=== PATIENT | male | born 1930 | race Caucasian/White ===

== ENCOUNTER → 2016-08-18 | Outpatient (CLI) | payer MEDICARE ==
[~2016-08-18] MED LIST: COUM4TAB7 PO; FURO20TA PO; SPIR50TA21 PO; WARF5TAB PO
[2016-08-18 14:21] LABS: PROTHROMBIN TIME - PATIENT 23.3 SEC (9.8-11.6)
== END ==
LOC: CLAB 13:49
PROVIDERS: ATTEND Internal Medicine Interventional Cardiology
DX: Z51.81 Encounter for therapeutic drug level monitoring (principal); Z79.01 Long term (current) use of anticoagulants
CPT/HCPCS: 36415; 85610

== ENCOUNTER → 2017-06-04 | Outpatient (CLI) | payer MEDICARE ==
[2017-06-04 12:44] LABS: HEMATOCRIT 41.8 % (39.0-51.0); MEAN CELL VOLUME 93.9 FL (80.0-100.0); MEAN CORPUSCULAR HEMOGLOBIN 31.3 PG (27.0-34.0); MEAN CORPUSCULAR HGB CONC 33.3 % (32.0-36.0); PLATELET COUNT 149 TH/MM3 (150-450); RED BLOOD COUNT 4.45 MIL/MM3 (4.50-5.90); RED CELL DISTRIBUTION WIDTH 14.7 % (11.6-17.2); REVIEW FLAG FINAL; WHITE BLOOD COUNT 5.6 TH/MM3 (4.0-11.0)
[2017-06-04 12:53] LABS: PROTHROMBIN TIME - PATIENT 22.9 SEC (9.8-11.6)
[2017-06-04 13:12] LABS: BICARBONATE 29.1 MEQ/L (21.0-32.0); POTASSIUM 4.2 MEQ/L (3.5-5.1)
== END ==
LOC: CLAB 12:17
PROVIDERS: ATTEND Internal Medicine Interventional Cardiology
DX: I48.2 Chronic atrial fibrillation (principal); I35.0 Nonrheumatic aortic (valve) stenosis; I42.2 Other hypertrophic cardiomyopathy; Z79.01 Long term (current) use of anticoagulants
CPT/HCPCS: 36415; 80048; 85027; 85610

== ENCOUNTER → 2017-08-06 | Outpatient (CLI) | payer MEDICARE ==
[2017-08-06 09:09] LABS: HEMOGLOBIN 13.7 GM/DL (13.0-17.0); MEAN CELL VOLUME 93.5 FL (80.0-100.0); MEAN CORPUSCULAR HEMOGLOBIN 30.4 PG (27.0-34.0); MEAN CORPUSCULAR HGB CONC 32.6 % (32.0-36.0); PLATELET COUNT 119 TH/MM3 (150-450); RED BLOOD COUNT 4.49 MIL/MM3 (4.50-5.90); WHITE BLOOD COUNT 4.1 TH/MM3 (4.0-11.0)
[2017-08-06 09:14] LABS: INTERNATIONAL NORMALIZED RATIO 1.8 RATIO; PROTHROMBIN TIME - PATIENT 18.2 SEC (9.8-11.6)
[2017-08-06 09:32] LABS: BICARBONATE 27.2 MEQ/L (21.0-32.0); CALCIUM 8.6 MG/DL (8.5-10.1); CREATININE 0.87 MG/DL (0.60-1.30)
== END ==
LOC: CLAB 08:40
PROVIDERS: ATTEND Internal Medicine Interventional Cardiology
DX: I25.10 Atherosclerotic heart disease of native coronary artery without angina pectoris (principal); I48.2 Chronic atrial fibrillation; I50.42 Chronic combined systolic (congestive) and diastolic (congestive) heart failure; Z79.01 Long term (current) use of anticoagulants
CPT/HCPCS: 36415; 80048; 85027; 85610

== ENCOUNTER → 2017-10-30 | Outpatient (CLI) | payer MEDICARE ==
[2017-10-30 09:55] LABS: PROTHROMBIN TIME - PATIENT 40.2 SEC (9.8-11.6)
[2017-10-30 10:25] LABS: BICARBONATE 29.7 MEQ/L (21.0-32.0); CALCIUM 8.9 MG/DL (8.5-10.1); CREATININE 0.84 MG/DL (0.60-1.30)
== END ==
LOC: CLAB 09:14
PROVIDERS: ATTEND Internal Medicine Interventional Cardiology
DX: R06.02 Shortness of breath (principal); I48.2 Chronic atrial fibrillation; Z79.01 Long term (current) use of anticoagulants; Z79.899 Other long term (current) drug therapy
CPT/HCPCS: 36415; 80048; 85610

== ENCOUNTER → 2017-11-10 | Outpatient (CLI) | payer MEDICARE ==
[2017-11-10 08:36] LABS: HEMATOCRIT 39.6 % (39.0-51.0); HEMOGLOBIN 13.1 GM/DL (13.0-17.0); MEAN CELL VOLUME 92.3 FL (80.0-100.0); MEAN CORPUSCULAR HEMOGLOBIN 30.6 PG (27.0-34.0); MEAN CORPUSCULAR HGB CONC 33.2 % (32.0-36.0); MEAN PLATELET VOLUME 7.2 FL (7.0-11.0); PLATELET COUNT 163 TH/MM3 (150-450); RED BLOOD COUNT 4.29 MIL/MM3 (4.50-5.90); RED CELL DISTRIBUTION WIDTH 15.3 % (11.6-17.2); WHITE BLOOD COUNT 4.6 TH/MM3 (4.0-11.0)
[2017-11-10 08:46] LABS: INTERNATIONAL NORMALIZED RATIO 1.3 RATIO; PROTHROMBIN TIME - PATIENT 13.4 SEC (9.8-11.6)
[2017-11-10 09:05] LABS: ALBUMIN 3.4 GM/DL (3.4-5.0); AST (GOT) 24 U/L (15-37); BLOOD UREA NITROGEN 31 MG/DL (7-18); CALCIUM 8.7 MG/DL (8.5-10.1); CHLORIDE 103 MEQ/L (98-107); CREATININE 0.91 MG/DL (0.60-1.30); GLOMERULAR FILTRATION RATE 79 ML/MIN (>89); GLUCOSE,FASTING 85 MG/DL (74-99); SODIUM (NA) 140 MEQ/L (136-145)
[2017-11-10 09:10] LABS: ALKALINE PHOSPHATASE 103 U/L (45-117); ALT (GPT) 16 U/L (12-78); TOTAL BILIRUBIN ADULT 1.6 MG/DL (0.2-1.0); TOTAL PROTEIN 6.3 GM/DL (6.4-8.2)
== END ==
LOC: CLAB 08:10
PROVIDERS: ATTEND Internal Medicine Interventional Cardiology
DX: Z79.810 Long term (current) use of selective estrogen receptor modulators (SERMs) (principal); Z79.899 Other long term (current) drug therapy
CPT/HCPCS: 36415; 80053; 85027; 85610

== ENCOUNTER 2017-11-11 09:32 | Day surgery (SDC) | payer MEDICARE ==
[2017-11-11 10:06] VITALS: BP 124/83; PULSE 88; RESP 16; TEMP 98.4; O2SAT 98
[2017-11-11 12:15] VITALS: BP 113/67; PULSE 75; RESP 20; TEMP 98.2; O2SAT 99
[2017-11-11 12:30] VITALS: BP 100/57; PULSE 72; RESP 18; O2SAT 99
[2017-11-11 13:41] LABS: PERITONEAL HISTIOCYTES 1 %; PERITONEAL LYMPHS 38 %; PERITONEAL MESOTHELIAL 3 %; PERITONEAL MONOS 10 %; PERITONEAL POLYS(SEGS) 48 %; PERITONEAL RBC 4460 /MM3 (0-0)
--- NOTE | 2017-11-11 14:24 | RADRPT ---
EXAM DATE/TIME: 11/11/2017 11:37 [facility] COMPARISON: No previous studies available for comparison. EXTERNAL COMPARISON: [facility], US ABDOMEN COMPLETE, Oct 29 2017. INDICATIONS : Ascites. MEDICAL HISTORY : Arthritis. Congestive heart failure. Ascites. SURGICAL HISTORY : CABG Aortic valve replacement. Cardiac cath. Blood transfusions. ENCOUNTER: Initial ACUITY: 2 weeks PAIN SCORE: 0/10 LOCATION: Right lower quadrant FLUID: Total volume of 3800 cc of fluid was removed. Fluid was sent to lab for ordered studies. Post procedure scanning reveals no hematoma or other complication. TECHNIQUE: 1. Ultrasound guidance for abdominal paracentesis. 2. Paracentesis. The risks, benefits, and alternatives to ultrasound guided paracentesis were explained to the patient in detail including the risk of bleeding and infection. Written and verbal informed consent was obt ained. With the patient on the ultrasound table, ultrasound imaging was used to select the most appropriate approach for paracentesis. Overlying skin was prepped and draped in the usual sterile fashion and wi th a local anesthetic, a dermatotomy was made with an 11 blade scalpel. A 6 Swedish Jnd-S-lmaobtle ca theter was introduced into the peritoneal cavity and fluid was collected. The patient tolerated the procedure well and left the ultrasound suite in stable condition. CONCLUSION: Uncomplicated ultrasound guided paracentesis. Hu Marc MD on November 11, 2017 at 14:04 Board Certified Radiologist. This report was verified electronically.
[2017-11-12 15:35] LABS: AMYLASE BODY FLUID 19 U/L; AMYLASE BODY FLUID TYPE PERITONEAL
== END 2017-11-11 13:00 | disposition home or self-care (01) ==
LOC: HRAD 09:32 → HRIP 09:35 → HRAD 13:00
PROVIDERS: ATTEND Internal Medicine Interventional Cardiology
DX: I50.9 Heart failure, unspecified (principal); Z95.2 Presence of prosthetic heart valve; Z95.1 Presence of aortocoronary bypass graft
CPT/HCPCS: 49083; 82042; 82150; 82945; 83615; 87015; 87070; 87116; 87205; 87206; 88112; 88305; 89051; C1729

== ENCOUNTER → 2017-11-30 | Outpatient (CLI) | payer MEDICARE ==
[2017-11-30 09:25] LABS: INTERNATIONAL NORMALIZED RATIO 2.3 RATIO; PROTHROMBIN TIME - PATIENT 23.4 SEC (9.8-11.6)
[2017-11-30 09:52] LABS: BICARBONATE 30.8 MEQ/L (21.0-32.0); CALCIUM 8.8 MG/DL (8.5-10.1); CREATININE 0.91 MG/DL (0.60-1.30)
== END ==
LOC: CLAB 08:54
PROVIDERS: ATTEND Internal Medicine Interventional Cardiology
DX: I50.32 Chronic diastolic (congestive) heart failure (principal); I42.2 Other hypertrophic cardiomyopathy; I48.2 Chronic atrial fibrillation; Z79.899 Other long term (current) drug therapy
CPT/HCPCS: 36415; 80048; 85610

== ENCOUNTER 2017-12-07 10:13 | Emergency (ER) | payer MEDICARE ==
[~2017-12-07] VITALS: Ht 167.6 cm; Wt 84.0 kg
[2017-12-07 10:43] VITALS: BP 147/64; PULSE 79; RESP 16; TEMP 98.1
[2017-12-07] MEDS ORDERED: WARF-58 PO (11:22)
[2017-12-07] MEDS ORDERED: LIDOCAINE HCL 1% PF 30 ML VIAL INFIL ONE (11:45)
[2017-12-07 11:52] LABS: AUTOMATED NEUTROPHIL # 4.1 TH/MM3 (1.8-7.7); BASOPHIL % 0.3 % (0.0-2.0); EOSINOPHIL # 0.2 TH/MM3 (0-0.4); EOSINOPHIL % 4.7 % (0.0-4.0); HEMATOCRIT 41.9 % (39.0-51.0); HEMOGLOBIN 13.9 GM/DL (13.0-17.0); LYMPH % 7.2 % (9.0-44.0); LYMPHOCYTE # 0.4 TH/MM3 (1.0-4.8); MEAN CELL VOLUME 92.5 FL (80.0-100.0); MEAN CORPUSCULAR HEMOGLOBIN 30.6 PG (27.0-34.0); MEAN CORPUSCULAR HGB CONC 33.1 % (32.0-36.0); MEAN PLATELET VOLUME 7.5 FL (7.0-11.0); MONO % 6.3 % (0.0-8.0); MONOCYTE # 0.3 TH/MM3 (0-0.9); NEUT % 81.5 % (16.0-70.0); PLATELET COUNT 158 TH/MM3 (150-450); RED BLOOD COUNT 4.53 MIL/MM3 (4.50-5.90); RED CELL DISTRIBUTION WIDTH 15.9 % (11.6-17.2)
[2017-12-07 11:59] LABS: INTERNATIONAL NORMALIZED RATIO 2.3 RATIO; PROTHROMBIN TIME - PATIENT 23.6 SEC (9.8-11.6)
--- NOTE | 2017-12-07 12:09 | PD ---
HPI Chief Complaint: Syncope/Near-Syncope Time Seen by Provider: 11:20 Travel History International Travel<30 days: No Contact w/Intl Traveler<30days: No Traveled to known affect area: No History of Present Illness HPI 87-year-old male that presents to the ED for evaluation of presyncopal episode with fall and head injury. Patient has a significant history of amyloidosis with liver, kidney and cardiac involvement. Patient has a history of ascites and gets paracentesis done last time done 2 weeks ago. Per patient he was trying to get to his chair when he started feeling dizzy and he obviously did not make it. He did hit his head. He denies losing consciousness however. He does have abrasions and lacerations to his left forehead as well as to his left elbow and left knee. Patient states having pain to these areas. Ambulance showed up at his home and they recommended that she comes here to get sutures. Patient does take Coumadin. Patient states that he was recently put on a new medication and he thinks that they might be related to the syncopal episodes. Patient denies any back or neck pain. Patient denies any hip pain. Patient came here by private vehicle. Brought here by family. Patient denies any abdominal pain. No chest pain. No chest pain or palpitations before the symptoms. He denies any numbness, tingling, weakness. PFSH Past Medical History Hx Anticoagulant Therapy: Yes Heart Rhythm Problems: No Cancer: No Cardiac Catheterization: Yes Cardiovascular Problems: Yes High Cholesterol: No Chest Pain: No Congestive Heart Failure: Yes Diminished Hearing: No Genitourinary: No Immune Disorder: No Musculoskeletal: Yes (athritis) Neurologic: No Psychiatric: No Reproductive: No Respiratory: No Tetanus Vaccination: > 5 Years Influenza Vaccination: Yes Past Surgical History Coronary Artery Bypass Graft: Yes (CABG X 5) Other Surgery: Yes Social History Alcohol Use: Yes (OCCASIONALLY) Tobacco Use: No Substance Use: No Allergies-Medications (Allergen,Severity, Reaction): Coded Allergies: apixaban (Verified Allergy, Unknown, hives, 12/07/17) naproxen (Verified Allergy, Unknown, hives, 12/07/17) rivaroxaban (Verified Allergy, Unknown, 12/07/17) Reported Meds & Prescriptions Reported Meds & Active Scripts Active Mupirocin Topical (Mupirocin) 2 % Oint 1 Applic TOPICAL BID Reported Warfarin 3 Mg Tab 3 Mg PO DAILY Furosemide 20 Mg Tab 20 Mg PO DAILY Review of Systems Except as stated in HPI: all other systems reviewed are Neg Physical Exam Narrative GENERAL: SKIN: Warm and dry. Patient has a skin tear to the left elbow which appears to be about 4-5 cm in diameter. Some bleeding noted. Patient has a superficial abrasion to the left knee but able to move it fully. HEAD: Atraumatic. Normocephalic. Patient has a superficial 2 cm laceration to the left forehead. EYES: Pupils equal and round 4 mm reactive to light and accommodation.. No scleral icterus. No injection or drainage. ENT: No nasal bleeding or discharge. Mucous membranes pink and moist. Tongue is midline. No uvula deviation. NECK: Trachea midline. No JVD. CARDIOVASCULAR: Regular rate and rhythm. RESPIRATORY: No accessory muscle use. Clear to auscultation. Breath sounds equal bilaterally. GASTROINTESTINAL: Abdomen soft, non-tender, distended with ascitic fluid. Hepatic and splenic margins not palpable. MUSCULOSKELETAL: Extremities without clubbing, cyanosis, or edema. No obvious deformities. Full range of motion of the upper and lower extremities bilaterally. 2+ pulses bilaterally. The lumbar, thoracic, cervical spine tenderness to palpation. NEUROLOGICAL: Awake and alert. No obvious cranial nerve deficits. Motor grossly within normal limits. Five out of 5 muscle strength in the arms and legs. Normal speech. PSYCHIATRIC: Appropriate mood and affect; insight and judgment normal. Data Data Last Documented VS Vital Signs Date Time Temp Pulse Resp B/P (MAP) Pulse Ox O2 Delivery O2 Flow Rate FiO2 12/07/17 12:24 71 126/69 (88) 12/07/17 12:24 99 Room Air 12/07/17 11:24 15 12/07/17 10:[address] Brain W/O Iv Contrast(Rout) (12/07/17 ) Electrocardiogram (12/07/17 11:20) Complete Blood Count With Diff (12/07/17 11:20) Comprehensive Metabolic Panel (12/07/17 11:20) Ckmb (Isoenzyme) Profile (12/07/17 11:20) Troponin I (12/07/17 11:20) B-Type Natriuretic Peptide (12/07/17 11:20) Prothrombin Time / Inr (Pt) (12/07/17 11:20) Act Partial Throm Time (Ptt) (12/07/17 11:20) Urinalysis - C+S If Indicated (12/07/17 11:20) Magnesium (Mg) (12/07/17 11:20) Thyroid Stimulating Hormone (12/07/17 11:20) Chest, Single Ap (12/07/17 11:20) Iv Access Insert/Monitor (12/07/17 11:20) Ecg Monitoring (12/07/17 11:20) Oximetry (12/07/17 11:20) Orthostatic Vital Signs (12/07/17 11:20) Lidocaine Pf 1% Inj (Xylocaine-Mpf 1% In (12/07/17 11:45) Knee, Complete (4vws) (12/07/17 ) Elbow, Complete (4 Vws) (12/07/17 ) Wound Care (12/07/17 11:33) Ed Discharge Order (12/07/17 13:28) Labs Laboratory Tests Test 12/07/17 11:40 12/07/17 12:35 White Blood Count 5.0 TH/MM3 Red Blood Count 4.53 MIL/MM3 Hemoglobin 13.9 GM/DL Hematocrit 41.9 % Mean Corpuscular Volume 92.5 FL Mean Corpuscular Hemoglobin 30.6 PG Mean Corpuscular Hemoglobin Concent 33.1 % Red Cell Distribution Width 15.9 % Platelet Count 158 TH/MM3 Mean Platelet Volume 7.5 FL Neutrophils (%) (Auto) 81.5 % Lymphocytes (%) (Auto) 7.2 % Monocytes (%) (Auto) 6.3 % Eosinophils (%) (Auto) 4.7 % Basophils (%) (Auto) 0.3 % Neutrophils # (Auto) 4.1 TH/MM3 Lymphocytes # (Auto) 0.4 TH/MM3 Monocytes # (Auto) 0.3 TH/MM3 Eosinophils # (Auto) 0.2 TH/MM3 Basophils # (Auto) 0.0 TH/MM3 CBC Comment DIFF FINAL Differential Comment Prothrombin Time 23.6 SEC Prothromb Time International Ratio 2.3 RATIO Activated Partial Thromboplast Time 33.8 SEC Blood Urea Nitrogen 33 MG/DL Creatinine 1.10 MG/DL Random Glucose 90 MG/DL Total Protein 6.7 GM/DL Albumin 3.6 GM/DL Calcium Level 9.3 MG/DL Magnesium Level 2.4 MG/DL Alkaline Phosphatase 116 U/L Aspartate Amino Transf (AST/SGOT) 33 U/L Alanine Aminotransferase (ALT/SGPT) 21 U/L Total Bilirubin 1.2 MG/DL Sodium Level 140 MEQ/L Potassium Level 4.4 MEQ/L Chloride Level 103 MEQ/L Carbon Dioxide Level 29.4 MEQ/L Anion Gap 8 MEQ/L Estimat Glomerular Filtration Rate 63 ML/MIN Total Creatine Kinase 83 U/L Troponin I 0.05 NG/ML B-Type Natriuretic Peptide 383 PG/ML Thyroid Stimulating Hormone 3rd Gen 3.450 uIU/ML Urine Color YELLOW Urine Turbidity CLEAR Urine pH 5.5 Urine Specific [place] 1.022 Urine Protein TRACE mg/dL Urine Glucose (UA) NEG mg/dL Urine Ketones NEG mg/dL Urine Occult Blood NEG Urine Nitrite NEG Urine Bilirubin NEG Urine Urobilinogen LESS THAN 2.0 MG/DL Urine Leukocyte Esterase TRACE Urine RBC 5 /hpf Urine WBC 1 /hpf Urine Squamous Epithelial Cells <1 /hpf Urine Mucus MANY /lpf Microscopic Urinalysis Comment CULT NOT INDICATED MDM Medical Decision Making Medical Screen Exam Complete: Yes Emergency Medical Condition: Yes Medical Record Reviewed: Yes Interpretation(s) CBC & BMP Diagram 12/07/17 11:40 Total Protein 6.7, Albumin 3.6, Calcium Level 9.3, Magnesium Level 2.4, Alkaline Phosphatase 116, Aspartate Amino Transf (AST/SGOT) 33, Alanine Aminotransferase (ALT/SGPT) 21, Total Bilirubin 1.2 H Last Impressions Chest X-Ray 12/07/17 1120 Signed Impressions: Service Date/Time: Thursday, December 07, 2017 12:07 - CONCLUSION: 1. Bilateral pleural effusions with hazy opacity at both lung bases and cardiomegaly. The findings are of concern for congestive heart failure. 2. Status post median sternotomy with artificial heart valve in place. Rocco Romero MD Knee X-Ray 12/07/17 0000 Signed Impressions: Service Date/Time: Thursday, December 07, 2017 11:52 - CONCLUSION: Negative trauma study with minimal degenerative change. Rocco Romero MD Head CT 12/07/17 0000 Signed Impressions: Service Date/Time: Thursday, December 07, 2017 12:09 - CONCLUSION: Negative noncontrast CT. Rocco Romero MD Elbow X-Ray 12/07/17 0000 Signed Impressions: Service Date/Time: Thursday, December 07, 2017 11:59 - CONCLUSION: Negative trauma study with mild degenerative change. Rocco Romero MD EKG show atrial fibrillation with no sign of acute ischemia read by me and attending. Differential Diagnosis Head injury versus syncope versus cardiac syncope versus fracture versus strain versus sprain Narrative Course 87-year-old male that presents to the ED for evaluation of syncope and fall. Patient was properly examined and was found to have signs and symptoms concerning for syncope and fall. Labs and imaging order. I recommend suturing. Patient gives verbal consent, please refer to my procedure note. Labs and imaging showed no sign of acute disease. Chronic changes. Patient does have fluid in his lungs which per patient is chronic for him. He is also DNR. He was given the option by myself in my attending to get admitted for further evaluation but patient at this time declines. Per patient he wants to go home. This was discussed at length with the patient about needing further evaluation but patient states that she rather go home. he understands risks. He has someone who can look at him at home. Patient was given a prescription for mupirocin cream. My attending spoke with the patient and agrees with plan. Told to follow-up with PCP. See ED if worsening symptoms. Get sutures removed in 1 week. Procedures Procedure Narrative LACERATION LOCATION: left forehead LENGTH: 2 cm NUMBER OF STITCHES/JAYY: 6 sutures REPAIR: The area of the laceration was prepped with Betadine and sterilely draped. The laceration was infiltrated with 1% Xylocaine. The wound was copiously irrigated and explored without evidence of foreign body, tendon injury or neurovascular injury. The wound was closed using 4-0 Prolene. This was a 1 layer repair. A sterile dressing was applied. The patient was advised to keep the dressing clean and dry. Patient tolerated the procedure well. Diagnosis Primary Impression: Head injury Qualified Codes: S09.90XA - Unspecified injury of head, initial encounter Additional Impressions: Laceration of head Qualified Codes: S01.01XA - Laceration without foreign body of scalp, initial encounter Skin tear of left elbow without complication Qualified Codes: S51.012A - Laceration without foreign body of left elbow, initial encounter Knee abrasion Qualified Codes: S80.212A - Abrasion, left knee, initial encounter Dizziness Patient Instructions: General Instructions Additional Instructions: Wound care daily with soap and water. You can apply bandaid if needed. Neosporyn or OTC antibiotic ointment to area as needed twice a day for at least 2 weeks to help with scarring and prevent infection. Meoderma OTC for scarring if needed. Avoid sun exposure for 2 months as the sun could make scar darker and more noticeable. Get sutures removed in 7 days. See ED if worst. Tylenol for pain as needed Med/Other Pt SpecificInfo: Prescription(s) given Scripts Mupirocin Topical (Mupirocin Topical) 2 % Oint 1 APPLIC TOPICAL BID for Mgmt Bacterial Infection, #1 TUBE 0 Refills Prov: Jairo Hernandez MD 12/07/17 Disposition: 01 DISCHARGE HOME Condition: Gil Stark Dec 07, 2017 12:09
[2017-12-07 12:12] LABS: ALT (GPT) 21 U/L (12-78)
[2017-12-07 12:16] LABS: ALBUMIN 3.6 GM/DL (3.4-5.0); AST (GOT) 33 U/L (15-37); BICARBONATE 29.4 MEQ/L (21.0-32.0); BLOOD UREA NITROGEN 33 MG/DL (7-18); CALCIUM 9.3 MG/DL (8.5-10.1); CHLORIDE 103 MEQ/L (98-107); GLOMERULAR FILTRATION RATE 63 ML/MIN (>89); GLUCOSE,RANDOM 90 MG/DL (74-106); MAGNESIUM 2.4 MG/DL (1.5-2.5); SODIUM (NA) 140 MEQ/L (136-145)
--- NOTE | 2017-12-07 12:20 | RADRPT ---
EXAM DATE/TIME: 12/07/2017 12:09 [facility] COMPARISON: No previous studies available for comparison. INDICATIONS : Fall, left sided head laceration, right sided numbness RADIATION DOSE: 56.35 CTDIvol (mGy) MEDICAL HISTORY : Cardiovascular disease. SURGICAL HISTORY : None. ENCOUNTER: Initial ACUITY: 1 day PAIN SCALE: 2/10 LOCATION: cranial TECHNIQUE: Multiple contiguous axial images were obtained of the head. Using automated exposure control and adj ustment of the mA and/or kV according to patient size, radiation dose was kept as low as reasonably a chievable to obtain optimal diagnostic quality images. DICOM format image data is available electro nically for review and comparison. FINDINGS: CEREBRUM: The ventricles are normal for age. No evidence of midline shift, mass lesion, hemorrhage or acute in farction. No extra-axial fluid collections are seen. POSTERIOR FOSSA: The cerebellum and brainstem are intact. The 4th ventricle is midline. The cerebellopontine angle i s unremarkable. EXTRACRANIAL: The visualized portion of the orbits is intact. SKULL: The calvaria is intact. No evidence of skull fracture. CONCLUSION: Negative noncontrast CT. Rocco Romero MD on December 07, 2017 at 12:18 Board Certified Radiologist. This report was verified electronically.
[2017-12-07 12:21] LABS: ALKALINE PHOSPHATASE 116 U/L (45-117); TOTAL BILIRUBIN ADULT 1.2 MG/DL (0.2-1.0); TOTAL PROTEIN 6.7 GM/DL (6.4-8.2); TROPONIN I 0.05 NG/ML (0.02-0.05)
--- NOTE | 2017-12-07 12:21 | RADRPT ---
EXAM DATE/TIME: 12/07/2017 11:52 [facility] COMPARISON: No previous studies available for comparison. INDICATIONS : Fell this morning pain with laceration patella MEDICAL HISTORY : None. SURGICAL HISTORY : None. ENCOUNTER: Initial ACUITY: 1 day PAIN SCORE: 8/10 LOCATION: Left knee. FINDINGS: Four view examination of the left knee demonstrates no evidence of fracture or dislocation. Bony min eralization is normal. Mild degenerative changes noted in the patellofemoral joint with slight spurri ng. The articular surfaces are intact. The suprapatellar soft tissues have a normal configuration. CONCLUSION: Negative trauma study with minimal degenerative change. Rocco Romero MD on December 07, 2017 at 12:19 Board Certified Radiologist. This report was verified electronically.
--- NOTE | 2017-12-07 12:22 | RADRPT ---
EXAM DATE/TIME: 12/07/2017 11:59 [facility] COMPARISON: No previous studies available for comparison. INDICATIONS : Fell this morning pain with laceration left elbow. MEDICAL HISTORY : None. SURGICAL HISTORY : None. ENCOUNTER: Initial ACUITY: 1 day PAIN SCORE: 9/10 LOCATION: Left elbow FINDINGS: Multiple view examination of the left elbow demonstrates no soft tissue swelling, joint effusion, or fracture. The osseous structures are in normal alignment. Mild degenerative changes are noted in the ulnar trochlear joint with slight spurring. Bony mineralization is normal. CONCLUSION: Negative trauma study with mild degenerative change. Rocco Romero MD on December 07, 2017 at 12:20 Board Certified Radiologist. This report was verified electronically.
[2017-12-07 12:23] VITALS: BP 123/65
--- NOTE | 2017-12-07 12:23 | RADRPT ---
EXAM DATE/TIME: 12/07/2017 12:07 [facility] COMPARISON: CHEST SINGLE AP, October 18, 2015, 18:35. INDICATIONS : Fall this morning pain left elbow and knee. MEDICAL HISTORY : Myocardial infarction. SURGICAL HISTORY : CABG. ENCOUNTER: Initial ACUITY: 1 day PAIN SCORE: 4/10 LOCATION: Bilateral chest FINDINGS: A single AP supine view of the chest was obtained and demonstrates the patient is status post median sternotomy. An artificial heart valve is again noted in place and mediastinal clips. Heart size remai ns prominent. Bilateral pleural effusions are present with blunting of the costophrenic angles. There is hazy opacity at both lung bases. Bony thorax is intact with degenerative changes left glenohumera l joint. CONCLUSION: 1. Bilateral pleural effusions with hazy opacity at both lung bases and cardiomegaly. The findings ar e of concern for congestive heart failure. 2. Status post median sternotomy with artificial heart valve in place. Rocco Romero MD on December 07, 2017 at 12:20 Board Certified Radiologist. This report was verified electronically.
[2017-12-07 12:24] VITALS: BP 126/69; O2SAT 99
[2017-12-07 13:00] LABS: BILIRUBIN, URINE NEG (NEG); BLOOD, URINE NEG (NEG); GLUCOSE,URINE NEG (NEG); KETONE, URINE NEG (NEG); MUCUS URINE MANY /lpf (OCC); NITRITE,URINE NEG (NEG); PH, URINE 5.5 (5.0-8.5); SQUAMOUS EPITHELIAL CELL URINE <1 /hpf (0-5); URINE COLOR YELLOW (YELLW/STRAW); URINE LEUKOCYTE ESTERASE TRACE (NEG)
--- NOTE | 2017-12-07 13:21 | PD ---
Data Data Last Documented VS Vital Signs Date Time Temp Pulse Resp B/P (MAP) Pulse Ox O2 Delivery O2 Flow Rate FiO2 12/07/17 13:37 12/07/17 12:24 71 12/07/17 12:24 99 Room Air 12/07/17 11:24 15 12/07/17 10:[address] Brain W/O Iv Contrast(Rout) (12/07/17 ) Electrocardiogram (12/07/17 11:20) Complete Blood Count With Diff (12/07/17 11:20) Comprehensive Metabolic Panel (12/07/17 11:20) Ckmb (Isoenzyme) Profile (12/07/17 11:20) Troponin I (12/07/17 11:20) B-Type Natriuretic Peptide (12/07/17 11:20) Prothrombin Time / Inr (Pt) (12/07/17 11:20) Act Partial Throm Time (Ptt) (12/07/17 11:20) Urinalysis - C+S If Indicated (12/07/17 11:20) Magnesium (Mg) (12/07/17 11:20) Thyroid Stimulating Hormone (12/07/17 11:20) Chest, Single Ap (12/07/17 11:20) Iv Access Insert/Monitor (12/07/17 11:20) Ecg Monitoring (12/07/17 11:20) Oximetry (12/07/17 11:20) Orthostatic Vital Signs (12/07/17 11:20) Lidocaine Pf 1% Inj (Xylocaine-Mpf 1% In (12/07/17 11:45) Knee, Complete (4vws) (12/07/17 ) Elbow, Complete (4 Vws) (12/07/17 ) Wound Care (12/07/17 11:33) Ed Discharge Order (12/07/17 13:28) Labs Laboratory Tests Test 12/07/17 11:40 12/07/17 12:35 White Blood Count 5.0 TH/MM3 Red Blood Count 4.53 MIL/MM3 Hemoglobin 13.9 GM/DL Hematocrit 41.9 % Mean Corpuscular Volume 92.5 FL Mean Corpuscular Hemoglobin 30.6 PG Mean Corpuscular Hemoglobin Concent 33.1 % Red Cell Distribution Width 15.9 % Platelet Count 158 TH/MM3 Mean Platelet Volume 7.5 FL Neutrophils (%) (Auto) 81.5 % Lymphocytes (%) (Auto) 7.2 % Monocytes (%) (Auto) 6.3 % Eosinophils (%) (Auto) 4.7 % Basophils (%) (Auto) 0.3 % Neutrophils # (Auto) 4.1 TH/MM3 Lymphocytes # (Auto) 0.4 TH/MM3 Monocytes # (Auto) 0.3 TH/MM3 Eosinophils # (Auto) 0.2 TH/MM3 Basophils # (Auto) 0.0 TH/MM3 CBC Comment DIFF FINAL Differential Comment Prothrombin Time 23.6 SEC Prothromb Time International Ratio 2.3 RATIO Activated Partial Thromboplast Time 33.8 SEC Blood Urea Nitrogen 33 MG/DL Creatinine 1.10 MG/DL Random Glucose 90 MG/DL Total Protein 6.7 GM/DL Albumin 3.6 GM/DL Calcium Level 9.3 MG/DL Magnesium Level 2.4 MG/DL Alkaline Phosphatase 116 U/L Aspartate Amino Transf (AST/SGOT) 33 U/L Alanine Aminotransferase (ALT/SGPT) 21 U/L Total Bilirubin 1.2 MG/DL Sodium Level 140 MEQ/L Potassium Level 4.4 MEQ/L Chloride Level 103 MEQ/L Carbon Dioxide Level 29.4 MEQ/L Anion Gap 8 MEQ/L Estimat Glomerular Filtration Rate 63 ML/MIN Total Creatine Kinase 83 U/L Troponin I 0.05 NG/ML B-Type Natriuretic Peptide 383 PG/ML Thyroid Stimulating Hormone 3rd Gen 3.450 uIU/ML Urine Color YELLOW Urine Turbidity CLEAR Urine pH 5.5 Urine Specific [place] 1.022 Urine Protein TRACE mg/dL Urine Glucose (UA) NEG mg/dL Urine Ketones NEG mg/dL Urine Occult Blood NEG Urine Nitrite NEG Urine Bilirubin NEG Urine Urobilinogen LESS THAN 2.0 MG/DL Urine Leukocyte Esterase TRACE Urine RBC 5 /hpf Urine WBC 1 /hpf Urine Squamous Epithelial Cells <1 /hpf Urine Mucus MANY /lpf Microscopic Urinalysis Comment CULT NOT INDICATED MDM Medical Record Reviewed: Yes Supervised Visit with PANCHO: Yes Narrative Course I, Dr. Hernandez, have reviewed the advance practice practitioner's documentation and am in agreement, met with the patient face to face, made the diagnosis, and the medical decision making was done by me. *My assessment and Findings: The patient had right-sided numbness followed by a near syncope event with fall and forehead laceration. Fortunately the patient refuses to stay here. We discussed indications for admission including possible TIA with high risk for CVA in the next 24 hours. Additional note was made of EKG abnormalities. Patient refused admission. Patient opportunity discussed alternatives and risks in so doing. Patient agrees to follow-up with primary care provider expeditiously. I spoke with Dr. Garcia (pt's PMD) who will try to get the patient in the office however does note a long history of noncompliance with this patient. Patient is hemodynamically stable and is of sound mind for independent decision making. Scripts Mupirocin Topical (Mupirocin Topical) 2 % Oint 1 APPLIC TOPICAL BID for Mgmt Bacterial Infection, #1 TUBE 0 Refills Prov: Jairo Hernandez MD 12/07/17 Jairo Hernandez MD Dec 07, 2017 13:21
[2017-12-07] MEDS ORDERED: MUPI2OIN TOPICAL (13:29)
--- NOTE | 2017-12-07 17:47 | EKG ---
Date Performed: 12/07/2017 Time Performed: 11:39:45 PTAGE: 87 years EKG: ATRIAL FIBRILLATION RIGHT BUNDLE BRANCH BLOCK POSSIBLE ANTERIOR MYOCARDIAL INFARCTION INFER IOR MYOCARDIAL INFARCTION MODERATE T-WAVE ABNORMALITY ABNORMAL ECG PREVIOUS TRACING : 10/18/2015 19.03 DOCTOR: Colton Ortiz Interpretating Date/Time 12/07/2017 17:45:36
== END 2017-12-07 14:09 | disposition home or self-care (01) ==
LOC: NEPE 10:13
DX: S01.81XA Laceration without foreign body of other part of head, initial encounter (principal); S01.01XA Laceration without foreign body of scalp, initial encounter; S51.012A Laceration without foreign body of left elbow, initial encounter; S80.212A Abrasion, left knee, initial encounter; R42 Dizziness and giddiness; I50.9 Heart failure, unspecified; W19.XXXA Unspecified fall, initial encounter; Z79.01 Long term (current) use of anticoagulants
CPT/HCPCS: 12011; 70450; 71045; 73080; 73564; 80053; 81001; 82550; 83735; 83880; 84443; 84484; 85025; 85610; 85730; 93005

== ENCOUNTER 2017-12-15 09:25 | Emergency (ER) | payer MEDICARE ==
[~2017-12-15] VITALS: Ht 165.1 cm; Wt 57.0 kg
[~2017-12-15 09:25] MED LIST changes: -COUM4TAB7 PO; +MUPI2OIN TOPICAL; -SPIR50TA21 PO; +WARF-58 PO; -WARF5TAB PO
[2017-12-15 09:28] VITALS: BP 125/65; PULSE 78; RESP 18; TEMP 97; O2SAT 99
--- NOTE | 2017-12-15 09:53 | PD ---
HPI Chief Complaint: Wound/Suture/Staple Re-Check Time Seen by Provider: 09:45 Travel History International Travel<30 days: No Contact w/Intl Traveler<30days: No Traveled to known affect area: No History of Present Illness HPI 87-year-old male presents to the emergency room for suture removal. Patient had 6 sutures placed on his head 8 days ago after having syncopal episode. States he has been keeping the area clean and dry and washing it daily. He has not been applying any ointment to the area. Denies any pain, redness, or drainage. Denies any headaches. PFSH Past Medical History Hx Anticoagulant Therapy: Yes Heart Rhythm Problems: No Cancer: No Cardiac Catheterization: Yes Cardiovascular Problems: Yes High Cholesterol: No Chest Pain: No Congestive Heart Failure: Yes Diminished Hearing: No Genitourinary: No Immune Disorder: No Musculoskeletal: Yes (athritis) Neurologic: No Psychiatric: No Reproductive: No Respiratory: No Past Surgical History Coronary Artery Bypass Graft: Yes (CABG X 5) Other Surgery: Yes Social History Alcohol Use: Yes (OCCASIONALLY) Tobacco Use: No Substance Use: No Allergies-Medications (Allergen,Severity, Reaction): Coded Allergies: apixaban (Verified Allergy, Unknown, hives, 12/15/17) naproxen (Verified Allergy, Unknown, hives, 12/15/17) rivaroxaban (Verified Allergy, Unknown, 12/15/17) Reported Meds & Prescriptions Reported Meds & Active Scripts Active Mupirocin Topical (Mupirocin) 2 % Oint 1 Applic TOPICAL BID Reported Warfarin 3 Mg Tab 3 Mg PO DAILY Furosemide 20 Mg Tab 20 Mg PO DAILY Review of Systems Except as stated in HPI: all other systems reviewed are Neg Physical Exam Narrative GENERAL: Well-nourished, well-developed male in no acute distress. Afebrile. Ambulatory. SKIN: Focused skin assessment warm/dry. There is a well-healed, well approximated 3 cm scar with scabbing and 6 intact sutures to the left forehead. HEAD: Normocephalic. EYES: No scleral icterus. No injection or drainage. NECK: Supple, trachea midline. No JVD or lymphadenopathy. CARDIOVASCULAR: Regular rate and rhythm without murmurs, gallops, or rubs. RESPIRATORY: Breath sounds equal bilaterally. No accessory muscle use. NEUROLOGICAL: Awake and alert. Cranial nerves II through XII intact. Motor and sensory grossly within normal limits. Five out of 5 muscle strength in all muscle groups. Normal speech. Data Data Last Documented VS Vital Signs Date Time Temp Pulse Resp B/P (MAP) Pulse Ox O2 Delivery O2 Flow Rate FiO2 12/15/17 09:28 97.0 78 18 125/65 (85) 99 MDM Medical Decision Making Medical Screen Exam Complete: Yes Emergency Medical Condition: Yes Medical Record Reviewed: Yes Differential Diagnosis Suture removal, laceration, abrasion, wound infection Narrative Course 87-year-old male presents to the emergency room for suture removal. There is a well-healed, well approximated 3 cm scar with scabbing and 6 intact sutures to the left forehead. No evidence of infection. Sutures removed without difficulty. Patient discharged with wound care instructions and told to follow- up with a primary care physician or return to the emergency room for worsening symptoms. He understands and agrees to plan. Diagnosis Primary Impression: Visit for suture removal Referrals: Primary Care Physician Additional Instructions: Keep wound clean and dry. Apply triple antibiotic ointment daily. Follow-up with a primary care physician as needed. Return to ED for worsening symptoms. Disposition: 01 DISCHARGE HOME Condition: Stable Colette Nicole December 15, 2017 09:53
== END 2017-12-15 09:59 | disposition home or self-care (01) ==
LOC: NEPK 09:25
DX: S01.80XD Unspecified open wound of other part of head, subsequent encounter (principal); X58.XXXD Exposure to other specified factors, subsequent encounter; Z48.02 Encounter for removal of sutures
CPT/HCPCS: 99281

== ENCOUNTER → 2018-01-05 | Outpatient (CLI) | payer MEDICARE ==
[2018-01-05 10:00] LABS: HEMATOCRIT 39.5 % (39.0-51.0); MEAN CELL VOLUME 91.9 FL (80.0-100.0); MEAN CORPUSCULAR HEMOGLOBIN 30.3 PG (27.0-34.0); MEAN PLATELET VOLUME 7.1 FL (7.0-11.0); PLATELET COUNT 149 TH/MM3 (150-450); RED CELL DISTRIBUTION WIDTH 16.1 % (11.6-17.2); WHITE BLOOD COUNT 4.2 TH/MM3 (4.0-11.0)
[2018-01-05 10:12] LABS: INTERNATIONAL NORMALIZED RATIO 1.7 RATIO; PROTHROMBIN TIME - PATIENT 17.7 SEC (9.8-11.6)
[2018-01-05 10:23] LABS: BICARBONATE 31.6 MEQ/L (21.0-32.0); CALCIUM 8.6 MG/DL (8.5-10.1); CREATININE 0.97 MG/DL (0.60-1.30)
== END ==
LOC: CLAB 09:16
PROVIDERS: ATTEND Internal Medicine Interventional Cardiology
DX: R60.0 Localized edema (principal); I48.2 Chronic atrial fibrillation; Z79.01 Long term (current) use of anticoagulants; Z79.899 Other long term (current) drug therapy
CPT/HCPCS: 36415; 80048; 85027; 85610

== ENCOUNTER 2018-01-07 09:38 | Day surgery (SDC) | payer MEDICARE ==
[2018-01-07 10:05] VITALS: BP 123/62; PULSE 68; RESP 16; TEMP 97.3; O2SAT 96
[2018-01-07 10:50] VITALS: BP 109/73; PULSE 68; RESP 20; TEMP 98; O2SAT 94
[2018-01-07 11:05] VITALS: BP 121/69; PULSE 64; RESP 20; O2SAT 94
[2018-01-07 11:20] VITALS: BP 111/63; PULSE 65; RESP 20; O2SAT 96
[2018-01-07] MEDS ORDERED: LIDOCAINE HCL 1% PF 30 ML VIAL ONE (14:47)
--- NOTE | 2018-01-07 16:22 | RADRPT ---
EXAM DATE: 01/07/2018 3:54 PM EDT AGE/SEX: 87 years / Male INDICATIONS: Ascites. CLINICAL DATA: This is the patient's subsequent encounter. Patient reports that signs and symptoms h ave been present for 2 months and indicates a pain score of 0/10. MEDICAL/SURGICAL HISTORY: . Arthritis. Congestive heart failure. Ascites. . Paracentesis. CABG Aortic valve replacement. Cardiac cath. Blood transfusions. [place] [facility] [place] 11/11/[place]. . FLUID: Total volume of 2,900 cc of clear, yellow fluid was removed. Fluid was discarded. Paracentesis was th erapeutic only. . . TECHNIQUE: Ultrasound guidance for abdominal paracentesis. Paracentesis. The risks, benefits, and alternatives to ultrasound guided paracentesis were explained to the patient in detail including the risk of bleeding and infection. Written and verbal informed consent was obt ained. With the patient on the ultrasound table, ultrasound imaging was used to select the most appropriate approach for paracentesis. Overlying skin was prepped and draped in the usual sterile fashion and wi th a local anesthetic, a dermatotomy was made with an 11 blade scalpel. A 6 Upper [place] [id number] ca theter was introduced into the peritoneal cavity and fluid was collected. Post procedure scanning reveals no hematoma or other complication. The patient tolerated the procedu re well and left the ultrasound suite in stable condition. CONCLUSION: 1. Successful paracentesis. Electronically signed by: Nestor Ravi MD 01/07/2018 4:21 PM EDT
== END 2018-01-07 11:32 | disposition home or self-care (01) ==
LOC: HRAD 09:38 → HRIP 10:56 → HRAD 11:32
PROVIDERS: ATTEND Internal Medicine Interventional Cardiology
DX: R18.8 Other ascites (principal); I50.9 Heart failure, unspecified; M19.90 Unspecified osteoarthritis, unspecified site; Z95.1 Presence of aortocoronary bypass graft; Z95.2 Presence of prosthetic heart valve
CPT/HCPCS: 49083; C1729